=== PATIENT | male | born 1995 | race Caucasian/White ===

== ENCOUNTER 2023-10-26 22:30 | Emergency (ER) | payer OTHER, SELFPAY ==
--- NOTE | 2023-10-26 00:11 | CT_ITS ---
The [address] [address] Patient Name: JOSIE BLACK MRN: [id number] date: 1995 Sex: M Assigned Patient Location: ER Current Patient Location: ER Accession/Order Number: [id number] Exam Date: 10/26/2023 23:59 Report Date: 10/27/2023 01:44 At the request of: LESLEY MARKER Procedure: CT abdomen pelvis w con EXAM: CT abdomen pelvis w con HISTORY: abd pain COMPARISON: None. TECHNIQUE: CT of abdomen and pelvis with intravenous contrast. Delayed imaging of the bladder performed. Dose reduction techniques were achieved by using automated exposure control and/or adjustment of mA and/or kV according to patient size and/or use of iterative reconstruction technique. FINDINGS: TUBES AND IMPLANTS: None. LOWER CHEST: Unremarkable ABDOMEN and PELVIS ABDOMINAL WALL AND SOFT TISSUES: Unremarkable. BONES: No suspicious lesions. Degenerative changes of the spine. ARTERIES: Unremarkable. VEINS: Unremarkable. LYMPH NODES: Unremarkable. PERITONEUM/ RETROPERITONEUM: Unremarkable. BOWEL: No obstruction. Mild diverticulosis APPENDIX: Surgically absent LIVER: No suspicious lesions. GALLBLADDER: No radiopaque stones are identified. There is trace pericholecystic fluid or submucosal edema. BILE DUCTS: Not dilated SPLEEN: Unremarkable. PANCREAS: Unremarkable. ADRENALS: Unremarkable. KIDNEYS/ URETERS: The left kidney is in seen in the left lower quadrant, rotated with the pelvis directed anteriorly. No stones or hydronephrosis. REPRODUCTIVE ORGANS: Unremarkable URINARY BLADDER: Unremarkable. CT/CT abdomen pelvis w con IMPRESSION: Trace pericholecystic fluid or submucosal edema involving the gallbladder. No definite radiopaque stones. This may represent chronic cholecystitis or may be related to the primary hepatic process. Correlate with LFTs and right upper quadrant ultrasound for further evaluation as clinically warranted. 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 No nephrolithiasis or evidence of obstructive uropathy. Mild diverticulosis. Electronically authenticated by: CAMILO BLOCK Date: 10/27/2023 01:44
[2023-10-26 22:45] VITALS: BP 173/110; PULSE 95; TEMP 36.7; O2SAT 97; BMI 27.2
--- NOTE | 2023-10-26 23:03 | ED.ABDPAIN1 ---
HPI - Abdominal Pain General Chief Complaint: Abdominal Pain Stated Complaint: ABDOMINAL PAIN Time Seen by Provider: 10/26/23 22:47 Source: patient Mode of arrival: walk-in Limitations: no limitations History of Present Illness HPI narrative: This 28-year-old male who states he has a history of irritable bowel disease and had an appendectomy while he was in the and stationed in [place] presents for evaluation of generalized abdominal cramping. The patient states he had [employer] around noon and has not eaten since that time. Earlier this evening he started having abdominal cramps that he states are different than his typical cramps from his irritable bowel syndrome. He denies any nausea or vomiting. His last bowel movement was yesterday. His cramps have mostly resolved but he wants to get checked out. He denies any fevers or chills. No medications were taken prior to arrival. He has no chest pain or shortness of breath. He is on Keflex because he is had a rash on the right upper chest wall and the physician told him that he thought it was shingles. He states that is getting better than it was on the Keflex. He has not had any fever or extension of this rash. Related Data Home Medications ?Medication ?Instructions ?Recorded ?Confirmed cephalexin 500 mg capsule mg 10/26/23 Allergies Allergy/AdvReac Type Severity Reaction Status Date / Time Penicillins Allergy Mild Verified 10/26/23 22:51 Review of Systems ROS Status of ROS 10 or more systems reviewed and unremarkable except as noted in history and below Exam Narrative Exam Narrative: Vital signs and Nursing Notes reviewed: He is afebrile with a normal pulse, blood pressure is elevated at 173/100, he is not hypoxic with pulse ox of 100% on room air General: Awake, alert, oriented, no acute distress, lying comfortably on the stretcher HEENT: Normocephalic atraumatic, mucous membranes are moist and pink, eyes are clear, normal conjunctiva, vision is grossly intact Chest: Lungs are clear to auscultation with good air entry, there is no wheezing rhonchi or rales appreciated no accessory muscle use, patient is speaking in complete sentences-no chest wall tenderness to palpation CVS: Regular rate and rhythm S1-S2, no murmurs rubs or gallops, pulses are brisk and equal bilaterally ABD: Soft, nondistended, mild epigastric and right upper quadrant tenderness. There is a resolving papular skin rash in the right upper quadrant. No pulsatile masses appreciated, Extremities: Moving all extremities, no lower extremity tenderness or swelling noted, negative Homans' sign, pulses are brisk and equal bilaterally Skin: Normal in appearance without rash,pallor, petechiae or purpura Neuro: No focal deficits Constitutional Vital Signs, click to edit/add: Last Vital Signs Temp 98.0 F 10/26/23 22:45 Pulse 95 H 10/26/23 22:45 Resp 18 10/26/23 22:45 BP 173/110 H 10/26/23 22:45 Pulse Ox 97 10/26/23 22:45 O2 Del Method Room Air 10/26/23 22:45 Course Vital Signs Vital signs: Vital Signs Temperature 98.0 F 10/26/23 22:45 Pulse Rate 95 H 10/26/23 22:45 Respiratory Rate 18 10/26/23 22:45 Blood Pressure 173/110 H 10/26/23 22:45 Pulse Oximetry 97 10/26/23 22:45 Oxygen Delivery Method Room Air 10/26/23 22:45 Temperature 98.0 F 10/26/23 22:45 Pulse Rate 95 H 10/26/23 22:45 Respiratory Rate 18 10/26/23 22:45 Blood Pressure 173/110 H 10/26/23 22:45 Pulse Oximetry 97 10/26/23 22:45 Oxygen Delivery Method Room Air 10/26/23 22:45 MDM - Abdominal Pain MDM Narrative Medical decision making narrative: This 28-year-old male with a history of irritable bowel syndrome presents for evaluation of abdominal cramps that were severe in nature prior to arrival. He states he last ate [employer] for lunch. He had abdominal cramps that were worse than usual for him before coming to the emergency department but had started subsiding before arrival. He denies any nausea or vomiting. He has no chest pain or shortness of breath. He did have his appendix removed when he was in the in [place]. He was also told at that time that he had an abnormal position of one of his kidneys. An IV was placed and the patient was medicated with IV fluids and oral Bentyl. Routine labs are reviewed. He has a normal white count and hemoglobin. Electrolytes, liver function tests and lipase are all normal. CT scan abdomen pelvis was ordered and shows some pericholecystic fluid without stones or other notable abnormality. The left kidney is the one that is ectopic and in the left lower quadrant of his abdomen. He has not had any recurrent abdominal pain while in emergency department. My suspicion is that he had an episode of biliary colic prior to arrival which had mostly resolved upon arrival. He will be discharged home with a requisition for a right upper quadrant ultrasound and prescription for Bentyl to use as needed for abdominal cramping in the future. Medical Records Medical records narrative: SPLEEN: Unremarkable. PANCREAS: Unremarkable. ADRENALS: Unremarkable. KIDNEYS/ URETERS: The left kidney is in seen in the left lower quadrant, rotated with the pelvis directed anteriorly. No stones or hydronephrosis. REPRODUCTIVE ORGANS: Unremarkable URINARY BLADDER: Unremarkable. IMPRESSION: Trace pericholecystic fluid or submucosal edema involving the gallbladder. No definite radiopaque stones. This may represent chronic cholecystitis or may be related to the primary hepatic process. Correlate with LFTs and right upper quadrant ultrasound for further evaluation as clinically warranted. 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 No nephrolithiasis or evidence of obstructive uropathy. Mild diverticulosis. Electronically authenticated by: CAMILO BLOCK Date: 10/27/2023 01:44 Lab Data Attestation: I reviewed the patient's lab results. Labs: Lab Results 10/26/23 Range/Units 23:10 WBC 7.9 (4.0-11.0) 10^3/uL RBC 5.44 (4.70-6.10) 10^6/uL Hgb 15.9 (14.0-18.0) g/dL Hct 46.3 (42.0-54.0) % MCV 85.1 (80.0-94.0) fL MCH 29.2 (25.9-34.0) pg MCHC 34.3 (29.9-35.2) g/dL RDW 11.9 (11.0-15.0) % Plt Count 297 (150-450) 10^3/uL MPV 10.0 (9.5-13.5) fL Neut % (Auto) 63.5 (43.0-75.0) % Lymph % (Auto) 28.1 (20.5-60.0) % [place] % (Auto) 6.8 (1.7-12.0) % Eos % (Auto) 0.9 (0.9-7.0) % Baso % (Auto) 0.6 (0.2-2.0) % Neut # (Auto) 5.0 (1.4-6.5) 10^3/uL Lymph # (Auto) 2.2 (1.2-3.8) 10^3/uL [place] # (Auto) 0.5 (0.3-0.8) 10^3/uL Eos # (Auto) 0.1 (0.0-0.7) 10^3/uL Baso # (Auto) 0.1 (0.0-0.1) 10^3/uL Abs Immat Gran (auto) 0.01 (0.00-0.03) 10^3/uL Imm/Tot Granulo (auto) 0.1 (0.0-0.5) % Sodium 141 (136-145) mmol/L Potassium 3.5 (3.5-5.1) mmol/L Chloride 104 (98-107) mmol/L Carbon Dioxide 28.5 (21.0-32.0) mmol/L Anion Gap 12.0 BUN 19.0 H (7.0-18.0) mg/dL Creatinine 1.16 (0.70-1.30) mg/dL Est GFR ( Amer) >60 (>=60) Est GFR (Non-Af Amer) >60 (>=60) BUN/Creatinine Ratio 16.4 Glucose 120 H (74-106) mg/dL Calcium 8.7 (8.5-10.1) mg/dL Total Bilirubin 0.6 (0.2-1.0) mg/dL AST 10 L (15-37) U/L ALT 67 H (16-63) U/L Alkaline Phosphatase 80 (46-116) U/L Total Protein 7.9 (6.4-8.2) g/dL Albumin 4.3 (3.4-5.0) g/dL Globulin 3.6 g/dL Albumin/Globulin Ratio 1.2 Lipase 42.0 (16.0-77.0) U/L Discharge Plan Discharge Stand Alone Forms: Portal Instructions Chief Complaint: Abdominal Pain Clinical Impression: Abdominal pain, Biliary colic Patient Disposition: Home, Self-Care Time of Disposition Decision: 02:51 Condition: Good Prescriptions / Home Meds: No Action cephalexin 500 mg capsule Print Language: Kinyarwanda Instructions: Biliary Colic (ED), Acute Abdominal Pain (ED) Referrals: Haja Young MD [Primary Care Provider] - 1 week Hood Prasad MD [Physician] - 1 week
[2023-10-26 23:41] LABS: Basophils Absolute Auto 0.1 10^3/uL (0.0-0.1); Basophils Percent Auto 0.6 % (0.2-2.0); Eosinophils Absolute Auto 0.1 10^3/uL (0.0-0.7); Eosinophils Percent Auto 0.9 % (0.9-7.0); Hematocrit 46.3 % (42.0-54.0); Hemoglobin 15.9 g/dL (14.0-18.0); Immature Granulocytes Abs Auto 0.01 10^3/uL (0.00-0.03); Immature Granulocytes Pct Auto 0.1 % (0.0-0.5); Lymphocytes Absolute Auto 2.2 10^3/uL (1.2-3.8); Lymphocytes Percent Auto 28.1 % (20.5-60.0); Mean Corpuscular HGB Conc 34.3 g/dL (29.9-35.2); Mean Corpuscular Hemoglobin 29.2 pg (25.9-34.0); Mean Corpuscular Volume 85.1 fL (80.0-94.0); Monocytes Absolute Auto 0.5 10^3/uL (0.3-0.8); Monocytes Percent Auto 6.8 % (1.7-12.0); Neutrophils Percent Auto 63.5 % (43.0-75.0); Platelet Count 297 10^3/uL (150-450); Red Blood Count 5.44 10^6/uL (4.70-6.10); Red Cell Distribution Width 11.9 % (11.0-15.0); White Blood Count 7.9 10^3/uL (4.0-11.0)
[2023-10-26] MEDS: 0.9 % SODIUM CHLORIDE 1,000 ML 1000 ML IV (23:53)
[2023-10-26] MEDS: DICYCLOMINE HCL 10 MG CAPSULE 20 MG PO (23:53)
[2023-10-27 00:01] LABS: Alanine Aminotransferase 67 U/L (16-63); Albumin Globulin Ratio 1.2; Albumin Level 4.3 g/dL (3.4-5.0); Alkaline Phosphatase 80 U/L (46-116); Aspartate Amino Transferase 10 U/L (15-37); BUN Creatinine Ratio 16.4; Bilirubin Total 0.6 mg/dL (0.2-1.0); Calcium 8.7 mg/dL (8.5-10.1); Carbon Dioxide 28.5 mmol/L (21.0-32.0); Chloride 104 mmol/L (98-107); Estimated GFR (African America >60 (>=60); Estimated GFR (Non-African Ame >60 (>=60); Globulin 3.6 g/dL; Glucose 120 mg/dL (74-106); Potassium 3.5 mmol/L (3.5-5.1); Sodium 141 mmol/L (136-145); Total Protein 7.9 g/dL (6.4-8.2)
[2023-10-27 03:13] VITALS: BP 148/88; PULSE 78; O2SAT 98
== END 2023-10-27 03:17 | disposition home or self-care (01) ==
PROVIDERS: Emergency Provider Emergency Medicine; PCP Family Medicine
DX: K80.50 Calculus of bile duct without cholangitis or cholecystitis without obstruction (principal); R10.9 Unspecified abdominal pain; K58.9 Irritable bowel syndrome, unspecified; Z90.49 Acquired absence of other specified parts of digestive tract
CPT/HCPCS: 36415; 74177; 80053; 81001; 83690; 85025; 99284; Q9967